=== PATIENT | female | born 1955 | race American Indian/Alaskan Native ===

== ENCOUNTER 2021-06-03 09:00 | Day surgery (SDC) | payer MEDICARE ==
[~2021-06-03 09:00] MED LIST: ACETAMINOPHEN 500 MG TAB PO SCH; BUPIVACAINE/PF (0.5%) 5 MG/1 ML 30 ML VIAL INFILTRATI ONE; CELECOXIB 200 MG CAP PO NR; GABAPENTIN 300 MG CAP PO NR; LACTATED RINGERS 1,000 ML IV SCH; LIDOCAINE (1%) 10 MG/1 ML VIAL 20 ML MDV INFILTRATI ONE; MIDAZOLAM 2 MG/2 ML INJ IV NR; SODIUM CHLORIDE 0.9% IRR 1,500 ML BOTTLE IR ONE; WATER FOR IRRIG STERILE 1,500 ML BOTTLE IR ONE; ceFAZolin/Water 2 GM/20 ML 2 GM/20 ML SYRINGE IV NR
[2021-06-03] MEDS ORDERED: oxyCODONE /ACETAMINOPHEN 5-325MG TAB PO PRN (11:27)
[2021-06-03] MEDS ORDERED: HYDROmorphone 1 MG/1 ML INJ IV PRN (11:27)
--- NOTE | 2021-06-03 11:27 | Anesthesia Consultation ---
Anesthesia Consult and Med Hx Date of service: 06/03/21 - Airway Anesthetic Teeth Evaluation: Edentulous ROM Head & Neck: Adequate Mental/Hyoid Distance: Adequate Mallampati Class: Class III Intubation Access Assessment: Possibly Difficult - Pre-Operative Health Status ASA Pre-Surgery Classification: ASA3 Proposed Anesthetic Plan: General - Pulmonary Hx Smoking: No Hx Respiratory Symptoms: No - Cardiovascular System Hx Hypertension: Yes (took amlodipine this morning) Hx Heart Attack/AMI: No (reports negtive cardiac work up 2020 after CVA) Hx Percutaneous Transluminal Coronary Angioplasty (PTCA): No Hx Cardia Arrhythmia: No - Central Nervous System CVA: Yes (2020; no deficits) Hx Psychiatric Problems: Yes - Endocrine Hx Renal Disease: No Hx Liver Disease: No Hx Insulin Dependent Diabetes: No Hx Non-Insulin Dependent Diabetes: No Hx Thyroid Disease: No - Other Systems Hx Obesity: Yes (BMI 34) - Additional Comments Anesthesia Medical History Comments: No hx anesthetic complications. Had an episode of nasuea/vomiting this morning. Not currently nauseous in preop.
--- NOTE | 2021-06-03 11:27 | Anesthesia Day of Surgery ---
Anesthesia Day of Surgery - Day of Surgery Patient Examined: Yes Patient H&P Reviewed: Yes Patient is NPO: Yes
[2021-06-03] MEDS ORDERED: ONDANSETRON 4 MG/2 ML INJ IV PRN (12:00)
[2021-06-03 12:38] LABS: Hemoglobin 12.8 gm/dl (10.1-14.3); Mean Corpuscular HGB Conc 34 % (30-34); Mean Corpuscular Volume 87 fl (79-97); Platelet Count 185 K/mm3 (140-440); Red Blood Count 4.39 M/mm3 (3.65-5.03); Red Cell Distribution Width 14.2 % (13.2-15.2)
[2021-06-03 12:57] LABS: Blood Urea Nitrogen 19 mg/dL (7-17); Calcium 9.7 mg/dL (8.4-10.2); Hemolysis Index 6
[2021-06-03 12:58] LABS: BUN/Creatinine Ratio 27
[2021-06-03] MEDS ORDERED: BUPIVACAINE/PF (0.5%) 5 MG/1 ML 30 ML VIAL INFILTRATI ONE ×2 (14:20→15:28)
[2021-06-03] MEDS ORDERED: LIDOCAINE (1%) 10 MG/1 ML VIAL 20 ML MDV ONE (14:20)
[2021-06-03] MEDS ORDERED: HYDROmorphone 1 MG/1 ML INJ ONE (14:27)
[2021-06-03] MEDS ORDERED: dexAMETHasone 20 MG/5 ML VIAL ONE (14:27)
[2021-06-03] MEDS ORDERED: ONDANSETRON 4 MG/2 ML INJ ONE (14:27)
[2021-06-03] MEDS ORDERED: LIDOCAINE MPF (2%) 20 MG/1 ML VIAL 5 ML ONE (14:27)
[2021-06-03] MEDS ORDERED: propofoL 200 MG/20 ML VIAL IV ONE (14:28)
[2021-06-03] MEDS ORDERED: SODIUM CHLORIDE 0.9% IRR 1,500 ML BOTTLE IR ONE (15:28)
[2021-06-03] MEDS ORDERED: WATER FOR IRRIG STERILE 1,500 ML BOTTLE IR ONE (15:28)
[2021-06-03] MEDS ORDERED: LIDOCAINE (1%) 10 MG/1 ML VIAL 20 ML MDV INFILTRATI ONE (15:28)
[2021-06-03] MEDS ORDERED: PHENYLEPHRINE 10 MG/1 ML INJ SDV ONE (15:45)
[2021-06-03] MEDS ORDERED: ePHEDrine SULFATE 50 MG/1 ML INJ ONE (15:46)
[2021-06-03] MEDS ORDERED: SODIUM CHLORIDE 0.9% IRRIG SOLN 2000 ML IR ONE (16:12)
[2021-06-03] MEDS ORDERED: LACTATED RINGERS 1,000 ML ONE (16:17)
[2021-06-03] MEDS ORDERED: NEOSTIGMINE 10MG/10 ML INJ MDV ONE (16:42)
[2021-06-03] MEDS ORDERED: GLYCOPYRROLATE 0.4 MG/2 ML INJ ONE (16:42)
--- NOTE | 2021-06-03 17:13 | Short Stay Summary ---
Short Stay Documentation Date of service: 06/03/21 Narrative H&P: Acute cholecystitis with gallstones possible gallbladder polyp - History H&P: obtained from office Past Surgical History: No surgical history Social history: no significant social history - Allergies and Medications Current Medications: Allergies codeine Allergy (Verified 05/31/21 16:57) Unknown PT STATES IT CAUSES AGITATION Sulfa (Sulfonamide Antibiotics) Allergy (Verified 05/31/21 16:57) Rash procaine [From Novocain] Adverse Reaction (Verified 06/03/21 10:03) Dizziness Home Medications Medication Instructions Recorded Confirmed Last Taken Type Adalimumab [Humira] 40 mg SQ 1XW 05/31/21 06/03/21 05/31/21 09:00 History Aspirin [Aspirin BABY CHEW TAB] 81 mg PO QDAY 05/31/21 06/03/21 05/20/21 09:00 History AtorvaSTATin [Lipitor] 40 mg PO QHS 05/31/21 06/03/21 06/02/21 20:00 History Furosemide [Lasix] 20 mg PO QDAY PRN 05/31/21 05/31/21 Unknown History Hydroxyzine HCl [hydrOXYzine] 50 mg PO BID 05/31/21 06/03/21 05/06/21 History Loratadine [Claritin] 10 mg PO DAILY 05/31/21 06/03/21 06/02/21 09:00 History Mecobalamin [B12 Active] 1,000 mcg PO DAILY 05/31/21 06/03/21 06/02/21 09:00 History Mirtazapine [Remeron] 30 mg PO HS 05/31/21 06/03/21 06/02/21 20:00 History Pantoprazole Sodium 40 mg PO DAILY 05/31/21 06/03/21 06/02/21 09:00 History Rosuvastatin Calcium 40 mg PO DAILY 05/31/21 06/03/21 06/02/21 09:00 History Sertraline [Zoloft] 100 mg PO QDAY 05/31/21 06/03/21 06/03/21 07:00 History amLODIPine [Norvasc] 10 mg PO DAILY 05/31/21 06/03/21 06/03/21 07:00 History Active Medications Acetaminophen (Acetaminophen 500 Mg Tab) 1,000 mg PO PREOP ASCENCION Last Admin: 06/03/21 10:20 Dose: 1,000 mg Celecoxib (Celecoxib 200 Mg Cap) 200 mg PO PREOP NR Stop: 06/03/21 23:00 Gabapentin (Gabapentin 300 Mg Cap) 300 mg PO PREOP NR Stop: 06/03/21 23:00 Last Admin: 06/03/21 10:20 Dose: 300 mg Hydromorphone HCl (Hydromorphone 1 Mg/1 Ml Inj) 0.5 mg IV Q10MIN PRN PRN Reason: Pain , Severe (7-10) Stop: 06/03/21 20:00 Cefazolin Sodium (Ancef/Sterile Water 2 Gm/20 Ml) 2 gm in 20 mls @ 80 mls/hr IV PREOP NR; Protocol Stop: 06/03/21 23:59 Lactated Ringer's (Lactated Ringers) 1,000 mls @ 100 mls/hr IV DIRECT ASCENCION Stop: 06/03/21 23:59 Last Admin: 06/03/21 10:15 Dose: 100 mls/hr Midazolam HCl (Midazolam 2 Mg/2 Ml Inj) 2 mg IV PREOP NR Stop: 06/03/21 23:00 Ondansetron HCl (Ondansetron 4 Mg/2 Ml Inj) 4 mg IV ONCE PRN PRN Reason: Nausea And Vomiting - Physical exam General appearance: no acute distress Heart: Regular rate Gastrointestinal: normal, normoactive bowel sounds Extremities: no ischemia, No edema - Brief post op/procedure progress note Date of procedure: 06/03/21 Pre-op diagnosis: Acute on chronic cholecystitis Post-op diagnosis: same Anesthesia: GETA Surgeon: NELL FERRARI Import/Export Freight Forwarder: JUAN J MENA Estimated blood loss: minimal Pathology: list (Gallbladder and stones) Specimen disposition: to lab Condition: stable - Disposition Condition at discharge: Stable Disposition: 01 HOME / SELF CARE / HOMELESS Short Stay Discharge Plan Activity: advance as tolerated Weight Bearing Status: Full Weight Bearing Diet: regular Wound: open to air, other Follow up with: GLADYS GIRALDO MD [Primary Care Provider] - 7 Days
--- NOTE | 2021-06-03 17:20 | Operative Report ---
Operative Report Operative Report: Date of procedure: 06/03/2021 Pre-op diagnosis: calculus of the gallbladder without cholecystitis, without obstruction Post-op diagnosis: same Procedure: robotic assisted laparoscopic cholecystectomy Anesthesia: GETA, local Findings: Surgeon: Dr. Conde Casing Mixer: Dr. Kaplan Estimated blood loss: minimal Pathology: list (gallbladder) Specimen disposition: to lab Condition: stable HPI an indication: Patient with biliary colic and on ultrasound multiple small stones possible gallbladder polyp. Procedure in detail: The patient was identified in the preoperative area and taken back to the operating room, placed on the operating room table in supine position. After anesthesia was induced, the abdomen was prepped and draped in usual sterile fashion and timeout was performed. Local anesthetic was infiltrated into all of the skin incision sites. A supraumbilical incision was made through which a Veress needle was inserted. The Veress needle positioning was confirmed using saline drop test and the abdomen insufflated to 15 mmHg without incident. The Veress needle was then removed and a 5 mm Optiview trocar placed through this incision. The abdomen was inspected and there was no underlying injury to the abdominal structures. An additional right lateral 8 mm robotic trocar, left lateral 8 mm robotic trocar, left upper quadrant 8 mm robotic trocar was placed under direct visualization. The supraumbilical trocar was removed and replaced with a 12 mm balloon trocar under direct visualization. The patient was placed in reverse Trendelenburg and tilted to the left. The robot was then docked in the usual fashion and the surgeon moved to the console. A fenestrated bipolar was placed into arm #1, a hook into #2, and a Caudier grasper in arm #3. The gallbladder was visualized and (findings). The gallbladder fundus was grasped and retracted cephalad and infundibulum retracted laterally. The cystic duct and artery were carefully skeletonized. The medial and lateral peritoneal attachments to the gallbladder were dissected using hook electrocautery. The cystic duct and artery were the only 2 structures seen entering the gallbladder and the critical view was successfully obtained. One hemolock clip was then placed on the proximal aspect of the cystic duct and one clip distally, and 1 hemolock clip was placed on the cystic artery proximally and 1 distally. The cystic duct and artery were transected in between the clips using EndoShears by the assistant winemaker. The gallbladder was dissected off the liver bed using hook electrocautery and placed in the right upper quadrant. The robot was then undocked and the surgeon scrubbed back in. The remainder of the case was performed laparoscopically. The gallbladder was placed into a Endo Catch bag and removed via the 12 mm port. The gallbladder fossa was then inspected and there was no identifiable bleeding or bile leakage. Hemostasis was ensured. The clips on the cystic duct and artery were visualized and intact. 12 mm port fascia was closed with interrupted 0 Vicryl sutures using the Aleks Devi device. The remaining ports were removed under direct visualization. Skin incisions were closed with 4-0 Monocryl subcuticular stitches and skin glue. All skin incisions were once again infiltrated with local anesthetic. At the end case all sponge, instrument, sharp counts were correct 2. The patient was awoken from anesthesia, extubated, taken to PACU in stable condition.
[2021-06-03 17:31] VITALS: BP 140/71
--- NOTE | 2021-06-03 17:47 | Post Anesthesia Evaluation ---
- Post Anesthesia Evaluation Patient Participated: Yes Airway Patent: Yes Stable Respiratory Function: Yes Nausea/Vomiting: Yes Temp > 96.8F: Yes Pain Manageable: Yes Adequeate Hydration: Yes Anesthesia Complications: No
== END 2021-06-03 09:01 | disposition home or self-care (01) ==
LOC: OR 09:00
PROVIDERS: ATTEND Surgery
DX: K80.20 Calculus of gallbladder without cholecystitis without obstruction (principal); E78.00 Pure hypercholesterolemia, unspecified; I10 Essential (primary) hypertension; E66.9 Obesity, unspecified; M19.90 Unspecified osteoarthritis, unspecified site; F32.9 Major depressive disorder, single episode, unspecified; F41.9 Anxiety disorder, unspecified; Z88.2 Allergy status to sulfonamides; Z20.828 Contact with and (suspected) exposure to other viral communicable diseases; Z88.5 Allergy status to narcotic agent; Z88.8 Allergy status to other drugs, medicaments and biological substances; Z79.899 Other long term (current) drug therapy; Z68.34 Body mass index [BMI] 34.0-34.9, adult; Z79.82 Long term (current) use of aspirin; Z90.710 Acquired absence of both cervix and uterus; Z98.890 Other specified postprocedural states; Z86.73 Personal history of transient ischemic attack (TIA), and cerebral infarction without residual deficits
CPT/HCPCS: 36415; 47562; 80048; 85027; 88304; J0690; J1100; J1170; J1815; J2370; J2405; J2704; J2710; J3490; J7120; S2900; U0003